=== PATIENT | female | born 1935 | race Caucasian/White ===

== ENCOUNTER → 2016-06-26 | Outpatient (CLI) | payer OTHER | LOC: BHFA 14:45 | PROVIDERS: ATTEND Internal Medicine Cardiovascular Disease | DX: I48.91 Unspecified atrial fibrillation (principal); R06.02 Shortness of breath; Z95.0 Presence of cardiac pacemaker ==

== ENCOUNTER → 2016-06-27 | Outpatient (CLI) | payer OTHER | LOC: BHFA 10:45 | PROVIDERS: ATTEND Internal Medicine Cardiovascular Disease | DX: I48.91 Unspecified atrial fibrillation (principal) ==

== ENCOUNTER 2016-07-02 10:50 | Day surgery (SDC) | payer OTHER ==
[2016-07-02] MEDS ORDERED: MIDAZOLAM 2 MG/2 ML VIAL IVP ONE (11:04)
[2016-07-02] MEDS ORDERED: NS 1,000 ML IV ONE (11:04)
--- NOTE | 2016-07-02 11:21 | CPEKG ---
Heart Rate: 122 RR Interval: 492 QRSD Interval: 100 QT Interval: 324 QTC Interval: 462 QRS [place]: -64 T Wave [place]: 139 EKG Severity - ABNORMAL ECG - EKG Impression: ATRIAL FIBRILLATION, V-RATE 86-200 EKG Impression: LEFT ANTERIOR FASCICULAR BLOCK EKG Impression: ANTERIOR Q WAVES, POSSIBLY DUE TO LVH Electronically Signed By: Robinson Verduzco 02-Jul-2016 13:15:49
[2016-07-02 11:55] LABS: INR 1.06 (0.83-1.16); PROTIME(PATIENT) 13.7 SEC (12.0-15.0)
[2016-07-02 11:59] LABS: ANION GAP 10 mEq/L (8-16); CALCIUM 9.7 mg/dL (8.5-10.4); CARBON DIOXIDE 22 mEq/l (22-31); CHLORIDE 109 mEq/L (97-110); CREATININE 0.7 mg/dL (0.6-1.0); GLOMERULAR FILTRATION RATE > 60; GLUCOSE 107 mg/dL (70-100); MAGNESIUM 2.2 mg/dL (1.6-2.3); SODIUM 141 mEq/L (134-144)
[2016-07-02 12:05] LABS: % IMMATURE GRANULYOCYTES 0.2 % (0.0-1.1); ABSOLUTE IMMATURE GRANULOCYTES 0.01 10^3/uL (0.00-0.10); ADD DIFF? NO; ADD MORPH? NO; ADD SCAN? NO; ATYPICAL LYMPHOCYTE FLAG 0 (0-99); FRAGMENT RBC FLAG 0 (0-99); HEMATOCRIT 38.8 % (38.0-47.0); LEFT SHIFT FLG 20 (0-99); LIPEMIA HEMOLYSIS FLAG 80 (0-99); MEAN CELL HEMOGLOBIN 31.9 pg (27.9-34.1); MEAN CELL HEMOGLOBIN CONCENTR. 33.5 g/dL (32.4-36.7); MEAN CELL VOLUME 95.1 fL (81.5-99.8); MEAN PLATELET VOLUME 9.2 fL (8.7-11.7); PLATELET CLUMPS FLAG 0 (0-99); PLATELET COUNT 230 10^3/uL (150-400); RED BLOOD CELL COUNT 4.08 10^6/uL (4.18-5.33); RED CELL DISTRIBUTION WIDTH 13.4 % (11.5-15.2)
== END 2016-07-02 13:15 | disposition home or self-care (01) ==
LOC: FCATH 10:50
PROVIDERS: ATTEND Internal Medicine Cardiovascular Disease
DX: I48.91 Unspecified atrial fibrillation (principal); I50.30 Unspecified diastolic (congestive) heart failure; M81.0 Age-related osteoporosis without current pathological fracture; Z53.8 Procedure and treatment not carried out for other reasons

== ENCOUNTER 2016-07-09 11:46 | Observation (INO) | payer OTHER ==
[2016-07-09] MEDS ORDERED: NS 1,000 ML IV ONE (12:04)
[2016-07-09] MEDS ORDERED: MIDAZOLAM 2 MG/2 ML VIAL IVP ONE (12:04)
--- NOTE | 2016-07-09 13:03 | CPEKG ---
Heart Rate: 60 RR Interval: 1000 P-R Interval: 228 QRSD Interval: 110 QT Interval: 460 QTC Interval: 460 QRS [place]: -54 T Wave [place]: -56 EKG Severity - ABNORMAL ECG - EKG Impression: ATRIAL-PACED RHYTHM EKG Impression: LEFT ANTERIOR FASCICULAR BLOCK EKG Impression: LATERAL INFARCT CANNOT BE RULED OUT EKG Impression: ABNRM R PROG, CONSIDER ASMI OR LEAD PLACEMENT Electronically Signed By: Maikel Fleming 09-Jul-2016 14:21:08
[2016-07-09 13:06] LABS: % IMMATURE GRANULYOCYTES 0.2 % (0.0-1.1); ABSOLUTE IMMATURE GRANULOCYTES 0.01 10^3/uL (0.00-0.10); ADD DIFF? NO; ADD MORPH? NO; ADD SCAN? NO; ATYPICAL LYMPHOCYTE FLAG 10 (0-99); FRAGMENT RBC FLAG 0 (0-99); HEMATOCRIT 40.8 % (38.0-47.0); HEMOGLOBIN 13.4 g/dL (12.6-16.3); LEFT SHIFT FLG 0 (0-99); LIPEMIA HEMOLYSIS FLAG 80 (0-99); MEAN CELL HEMOGLOBIN 32.6 pg (27.9-34.1); MEAN CELL HEMOGLOBIN CONCENTR. 32.8 g/dL (32.4-36.7); MEAN CELL VOLUME 99.3 fL (81.5-99.8); MEAN PLATELET VOLUME 9.2 fL (8.7-11.7); PLATELET CLUMPS FLAG 30 (0-99); PLATELET COUNT 240 10^3/uL (150-400); RED BLOOD CELL COUNT 4.11 10^6/uL (4.18-5.33); RED CELL DISTRIBUTION WIDTH 13.3 % (11.5-15.2)
[2016-07-09] MEDS ORDERED: HEPARIN 10,000 UNIT/10 ML MDV ONE (13:14)
[2016-07-09] MEDS ORDERED: BUPIVACAINE 0.5% 30 ML SDV ONE (13:14)
[2016-07-09] MEDS ORDERED: LIDOCAINE 1% 30 ML SDV ONE (13:14)
[2016-07-09] MEDS ORDERED: ISOPROTERENOL HCL 0.2 MG/ML 5ML AMP ONE (13:14)
[2016-07-09 13:16] LABS: ANION GAP 11 mEq/L (8-16); CALCIUM 9.5 mg/dL (8.5-10.4); CARBON DIOXIDE 20 mEq/l (22-31); CHLORIDE 111 mEq/L (97-110); CREATININE 0.6 mg/dL (0.6-1.0); GLOMERULAR FILTRATION RATE > 60; GLUCOSE 84 mg/dL (70-100); MAGNESIUM 2.1 mg/dL (1.6-2.3); POTASSIUM 5.5 mEq/L (3.5-5.2); SODIUM 142 mEq/L (134-144)
[2016-07-09 13:21] LABS: SPECIMEN HEMOLYSIS 220
[2016-07-09 13:33] LABS: INR 1.07 (0.83-1.16); PROTIME(PATIENT) 13.8 SEC (12.0-15.0)
[2016-07-09 13:34] LABS: APTT 25.5 SEC (23.0-38.0)
[2016-07-09] MEDS ORDERED: PROPOFOL 200 MG/20 ML VIAL ONE ×2 (13:47)
[2016-07-09] MEDS ORDERED: GLYCOPYRROLATE 0.2 MG/1 ML VIAL ONE (14:45)
--- NOTE | 2016-07-09 15:23 | CPEKG ---
Heart Rate: 30 RR Interval: 2000 QRSD Interval: 136 QT Interval: 528 QTC Interval: 373 QRS [place]: -78 T Wave [place]: 77 EKG Severity - ABNORMAL ECG - EKG Impression: VENTRICULAR PACED RHYTHM AT A VERY SLOW RATE 30 BPM EKG Impression: NORMAL SINUS RHYTHM WITH RATE OF 80 AND COMPLETE HEART BLOCK WITH OBVIOUS AV EKG Impression: DISSOCIATION Electronically Signed By: Maikel Fleming 10-Jul-2016 11:31:09
[2016-07-09] MEDS ORDERED: ATROPINE SULFATE 1 MG/10 ML SYR ONE (15:32)
[2016-07-09] MEDS ORDERED: ACETAMINOPHEN 325 MG TAB PO PRN (15:58)
[2016-07-09] MEDS ORDERED: OXYCODONE/APAP 5/325 TAB PO PRN (15:58)
[2016-07-09] MEDS ORDERED: ONDANSETRON 4 MG/2 ML VIAL IVP PRN (15:58)
[2016-07-09] MEDS ORDERED: PROMETHAZINE HCL 12.5 MG SUPPR PR PRN (16:00)
[2016-07-09] MEDS ORDERED: LORazepam 0.5 MG TAB PO PRN (16:00)
[2016-07-09] MEDS ORDERED: TEARS/DEXTRAN 70/HYPROMELLOSE 15 ML OPHT.BTL EACHEYE PRN (16:39)
[2016-07-09 18:47] LABS: ANION GAP 13 mEq/L (8-16); CALCIUM 9.3 mg/dL (8.5-10.4); CARBON DIOXIDE 21 mEq/l (22-31); CHLORIDE 109 mEq/L (97-110); CREATININE 0.6 mg/dL (0.6-1.0); GLOMERULAR FILTRATION RATE > 60; GLUCOSE 86 mg/dL (70-100); POTASSIUM 3.8 mEq/L (3.5-5.2); SODIUM 143 mEq/L (134-144)
[2016-07-09] MEDS: APIXABAN 2.5 MG TAB PO SCH (20:55)
[2016-07-09 21:37] VITALS: O2SAT 94
[2016-07-10] MEDS ORDERED: LEVOTHYROXINE 25 MCG TAB PO SCH (06:00)
[2016-07-10 06:20] LABS: % IMMATURE GRANULYOCYTES 0.3 % (0.0-1.1); ABSOLUTE IMMATURE GRANULOCYTES 0.01 10^3/uL (0.00-0.10); ADD DIFF? NO; ADD MORPH? NO; ADD SCAN? NO; ATYPICAL LYMPHOCYTE FLAG 10 (0-99); FRAGMENT RBC FLAG 0 (0-99); HEMATOCRIT 36.6 % (38.0-47.0); HEMOGLOBIN 12.4 g/dL (12.6-16.3); LEFT SHIFT FLG 10 (0-99); LIPEMIA HEMOLYSIS FLAG 90 (0-99); MEAN CELL HEMOGLOBIN 32.5 pg (27.9-34.1); MEAN CELL HEMOGLOBIN CONCENTR. 33.9 g/dL (32.4-36.7); MEAN CELL VOLUME 96.1 fL (81.5-99.8); MEAN PLATELET VOLUME 8.6 fL (8.7-11.7); PLATELET CLUMPS FLAG 0 (0-99); PLATELET COUNT 213 10^3/uL (150-400); RED BLOOD CELL COUNT 3.81 10^6/uL (4.18-5.33); RED CELL DISTRIBUTION WIDTH 13.1 % (11.5-15.2)
[2016-07-10 06:28] LABS: INR 1.24 (0.83-1.16); PROTIME(PATIENT) 15.6 SEC (12.0-15.0)
[2016-07-10 06:41] LABS: ANION GAP 8 mEq/L (8-16); CALCIUM 8.9 mg/dL (8.5-10.4); CARBON DIOXIDE 22 mEq/l (22-31); CHLORIDE 111 mEq/L (97-110); CREATININE 0.7 mg/dL (0.6-1.0); GLOMERULAR FILTRATION RATE > 60; GLUCOSE 87 mg/dL (70-100); POTASSIUM 4.1 mEq/L (3.5-5.2); SODIUM 141 mEq/L (134-144)
[2016-07-10 06:53] LABS: TROPONIN I 0.103 ng/mL (0-0.034)
[2016-07-10 08:20] VITALS: BP 130/76; PULSE 90; RESP 16; TEMP 98.3
--- NOTE | 2016-07-10 08:51 | CPEKG ---
Heart Rate: 106 RR Interval: 566 P-R Interval: 126 QRSD Interval: 126 QT Interval: 400 QTC Interval: 532 P [place]: 0 QRS [place]: -76 T Wave [place]: 95 EKG Severity - ABNORMAL ECG - EKG Impression: A-V DUAL-PACED RHYTHM WITH SOME INHIBITION Electronically Signed By: Maikel Fleming 10-Jul-2016 11:26:04
[2016-07-10] MEDS ORDERED: CYANO/VITAMIN B12 1000 MCG TAB PO SCH (09:00)
--- NOTE | 2016-07-10 10:53 | ECHO ---
[id number] + + [id number] : : [place] [address] : : [phone] + + Adult Echocardiographic Report + ------+ :Name: LEXA TRUONGsteph Date: 07/10/2016 08:27 AM BP: 130/78 mmHg : : Hospital Admission Number: [id number] Brandee n: 222: :: 1935 Gender: Female Height: 64 in : :Age: 81 yrs Race: WH Weight: 125 lb : :Reason For Study: post EP study : : BSA: 1.6 meters 2 : :History: arrhythmia : + ------+ MMode/2D Measurements \T\ Calculations IVSd: 0.88 cm RVDd: 3.1 cm FS: 28.2 % Ao root diam: LVPWd: 0.88 cm LVIDd: 4.1 cm EDV(Teich): 72.2 ml 3.5 cm LVIDs: 2.9 cm ESV(Teich): 32.5 ml LA dimension: EF(Teich): 55.0 % 3.3 cm LVOT diam: 2.0 cmLVLd ap4: 6.4 cm SV(MOD-sp4): LVOT area: EDV(MOD-sp4): 36.0 ml 3.2 cm2 68.0 ml LVLs ap4: 5.6 cm ESV(MOD-sp4): 32.0 ml EF(MOD-sp4): 52.9 % Normal Measurement Values: + + :LVIDd (3.5-5.7cm) IVSd (0.6-1.1cm) LVPWd (0.6-1.1cm) Aortic Root (2.0-3.7cm)Left Atrium (1.5-4.0cm): :LV Vol(d) (76-115ml) LV Vol(s) (29-48ml) Ejec Fraction (50-65%)PV Julio (0.6- 1.2m/s) TV Julio (0.4-1.0m/s) : :MV E Julio (0.8-1.0m/s)MV A Julio (0.3-1.0m/s)LVOT Julio (0.7-1.2m/s) Asc Ao Julio ( 0.9-1.8m/s) : + + Doppler Measurements \T\ Calculations MV E max julio: Ao V2 max: LV V1 max: PA V2 max: 20.7 cm/sec 94.1 cm/sec 62.4 cm/sec 67.3 cm/sec Ao max P.5 mmHgLV V1 max PG: PA max PG: LUDWIN(V,D): 2.1 cm2 1.6 mmHg 1.8 mmHg PI end-d julio: TR max julio: 178.1 cm/sec 297.5 cm/sec TR max P.4 mmHg RAP systole: 10.0 mmHg RVSP(TR): 45.4 mmHg Left Ventricle The left ventricle is normal in size. There is normal left ventricular wall thickness. Left ventricular systolic function is low normal. Ejection Fraction = 50-55%. No regional wall motion abnormalities noted. Right Ventricle The right ventricle is normal in size and function. There is a pacemaker lead in the right ventricle. Atria The left atrium is mildly dilated. The Left Atrial Volume is 40 ml/m2. The right atrium is mildly dilated. There was no clot seen in the IVC. A dilated inferior vena cava suggests increased right atrial pressure. Mitral Valve The mitral valve leaflets appear thickened, but open well. There is no mitral valve stenosis. There is moderate mitral regurgitation. Tricuspid Valve The tricuspid valve is normal in structure and function. There is no tricuspid stenosis. There is moderate tricuspid regurgitation. Right ventricular systolic pressure is 45mmHg. There is Doppler evidence for moderate pulmonary hypertension. Aortic Valve The aortic valve is trileaflet. There is no aortic stenosis. There is no aortic insufficiency. Pulmonic Valve The pulmonic valve is normal in structure and function. Mild to moderate pulmonic valvular regurgitation. Great Vessels The aortic root is normal size. Pericardium/Pleural Trivial pericardial effusion versus fat pad. Conclusion A two-dimensional transthoracic echocardiogram with M-mode and Doppler was performed. Left ventricular systolic function is low normal. Ejection Fraction = 50-55%. The left atrium is mildly dilated. The Left Atrial Volume is 40 ml/m2. The right atrium is mildly dilated. There was no clot seen in the IVC. There is moderate mitral regurgitation. There is moderate tricuspid regurgitation. Right ventricular systolic pressure is 45mmHg. There is Doppler evidence for moderate pulmonary hypertension. Mild to moderate pulmonic valvular regurgitation. Trivial pericardial effusion versus fat pad. Final Reading Physician: Robinson Verduzco MD electronically signed on 07/10/2016 10:51 AM Ordering Physician: Robinson Verduzco Performed By: Amarilys Roper
[2016-07-10] MEDS: APIXABAN 2.5 MG TAB PO SCH (11:00)
--- NOTE | 2016-07-10 12:05 | EPPROC ---
Electrophysiology Procedure Note: Procedure performed on 07/09/2016 CATHETER MEDIATED ABLATION OF THE AV JUNCTION Procedures performed: [id number] AV node ablation Fluoroscopy INDICATION: Atrial fibrillation, unable to rate control despite maximally tolerated medical therapy Catheters & Anesthesia: The patient arrived in the Electrophysiology Laboratory in the fasting state. Moderate sedation was administered by anesthesiologist. The right groin and left groin area were prepped and draped in the usual sterile manner. Appropriate non-invasive blood pressure, pulse oximetry and end-tidal CO2 monitoring was established. All catheters were placed percutaneously using the modified Seldinger technique and advanced into position under fluoroscopic guidance). At baseline the patient was noted to be in atrial paced rhythm . She is known to have ventricular rates in excess of 150 beats per minute during atrial fibrillation. This is despite maximally tolerated medical therapy A #7 Cam[place]onian deflectable quadrapolar electrode catheter (2mm-5mm-2mm spacing) with 8 mm tip electrode was advanced to the right atrium. A total of 4 RF applications were delivered. RF#1 was applied in the area of the compact AV node. RF#2 was applied to the same area as RF#1. RF#3 was applied to the area of the fast AV sima pathway. RF#4 was applied to the right midseptal tricuspid annulus. There was complete AV block after RF 1. Cessation of pacing revealed that there was junctional escape rhythm at a rate of 32 bpm in the recovery area. In the EP lab, there was no escape rhythm. Pacemaker implantation was done previously. The pacemaker was programmed to a lower rate of 80 ppm to reduce the risk of sudden associated with torsades de pointes. The lower rate will gradually be reduced to 60 ppm after 1 month . Fluoroscopically pacemaker lead positions were unchanged after procedure Pacemaker thresholds and impedances were unchanged after the procedure The catheters were removed. The patient was transferred to the cardiovascular holding area in stable condition. Vascular access sheaths were removed in the holding area. There were no apparent complications. CONCLUSIONS: 1. Atrial fibrillation with rapid ventricular response. 2. Successful ablation of the AV junction producing complete AV block. 3. Junctional escape rhythm at a rate of 32 all bpm. 4. No complications. Patient Problems: Problems Problem Status Onset Atrial fibrillation with rapid ventricular response Acute Bradycardia Acute Sinus arrest Acute Pleural effusion, left Acute Pericardial effusion Acute Chest pain Acute
--- NOTE | 2016-07-10 17:38 | GDS ---
[f rep st] DISCHARGE SUMMARY ADMITTING DIAGNOSES: 1. Atrial fibrillation with rapid ventricular response. 2. Status post pacemaker for sinus arrest 01/15. 3. Valvular disease with moderate mitral regurgitation and tricuspid regurgitation. DISCHARGE DIAGNOSES: 1. Atrial fibrillation with rapid ventricular response, status post atrioventricular node ablation. 2. Dual-chamber pacemaker for sinus arrest 01/15. 3. Valvular disease with moderate mitral regurgitation and tricuspid regurgitation. BRIEF HISTORY: This is an 81-year-old woman with a history of PAF with symptomatic RVR for over 1 year. Her rates have been unable to be controlled with medications. AV node ablation has been discussed and offered for over a year, however, she was hesitant to have this done. Recently, her symptoms became extremely symptomatic, and she was miserable, and she decided to proceed with AV node ablation. Recent echocardiogram demonstrated EF of 50% to 55%, and a severely dilated LA. She had a prior dual-chamber pacemaker implanted in January 2015. HOSPITAL COURSE: The patient underwent a successful AV node ablation by Dr. Verduzco without complications. Her pacemaker rate is set at 80 beats per minute. She has not had any atrial fibrillation overnight. This morning, she was initially feeling well. She denied any pain in her groin or her leg. Later, she did develop some nausea, which did improve after she received some Zofran. She was able to keep her medications down, and she felt better, and was able to go home with her son. PHYSICAL EXAMINATION: VITAL SIGNS: Blood pressure is 118/76, pulse is 88, respirations 18, temperature 36.6. O2 saturation on room air is 94%. GENERAL: She is alert and oriented, in no acute distress, sitting up in her chair and walking in her room. SKIN: Warm and dry. No discoloration. CARDIAC: Regular rate and rhythm with a 2/3 systolic murmur. No JVD. LUNGS: Clear to auscultation. ABDOMEN: Soft and nontender. EXTREMITIES: Warm, dry. No discoloration. No lower extremity edema. Right groin site is without swelling , bleeding, or drainage. No tenderness. LAB WORK: WBC is 3.97, hemoglobin 12.4, hematocrit 36.6, platelets 213. PT 15.6. INR is 1.24. Sodium 141, potassium 4.1, chloride 111, bicarbonate 22, BUN 15, creatinine is 0.7, glucose 87, CK 32, MB 0.5, troponin is 0.103. These cardiac enzymes are elevated, which is to be expected after ablation. Testing done in the hospital: Echocardiogram on the day of discharge demonstrated ejection fraction of 50% to 55% with moderate MR and TR, and a trivial effusion versus fat pad. DISCHARGE MEDICATIONS: Please see discharge medication reconciliation. FOLLOWUP: She has a followup scheduled on August 08, 2016, with Dr. Verduzco at 10:45. DISCHARGE INSTRUCTIONS: Reviewed with her. As far as activity restrictions, no lifting over 10 pounds, and these were written down on her discharge. /[id number]/MODL MTDD
== END 2016-07-10 16:22 | disposition home or self-care (01) ==
LOC: FCATH 11:46 → F2W 14:50
PROVIDERS: ADMIT Internal Medicine Cardiovascular Disease; ATTEND Internal Medicine Cardiovascular Disease
PROC: 02563ZZ Destruction of Right Atrium, Percutaneous Approach (ICD-10-PCS; principal; 2016-07-09)
DX: I48.1 Persistent atrial fibrillation (principal); I08.1 Rheumatic disorders of both mitral and tricuspid valves; M81.0 Age-related osteoporosis without current pathological fracture; E03.9 Hypothyroidism, unspecified; Z95.0 Presence of cardiac pacemaker
CPT/HCPCS: 93005; 93306; 93650; C1732; J1644; J2405; J2704; J0461

== ENCOUNTER → 2016-08-08 | Outpatient (CLI) | payer OTHER | LOC: BHFA 10:45 | PROVIDERS: ATTEND Internal Medicine Cardiovascular Disease | DX: I48.91 Unspecified atrial fibrillation (principal); R06.02 Shortness of breath; I50.30 Unspecified diastolic (congestive) heart failure; Z95.0 Presence of cardiac pacemaker ==

== ENCOUNTER → 2016-12-24 | Outpatient (CLI) | payer OTHER | LOC: FIMAGING 10:10 | PROVIDERS: ATTEND Internal Medicine | DX: J34.89 Other specified disorders of nose and nasal sinuses (principal) ==

== ENCOUNTER 2017-09-22 09:00 | Inpatient (IN) | payer OTHER ==
--- NOTE | 2017-09-22 09:19 | EDPHY ---
H & P Stated Complaint: R KNEE PAIN, FALL Time Seen by Provider: 09/22/17 09:16 HPI/ROS: HPI: This is an 82-year-old female who presents with Chief Complaint: Fall and left knee pain Location:left knee Quality: injury Duration: Yesterday evening around 8:00 p.m. Signs and Symptoms: No bleeding, no radiation, no numbness, no weakness, no tingling, no incontinence, + decreased range of motion, + swelling, + pain, no fever Timing: acute Severity: moderate Context: Patient reports that she has a history atrial fibrillation on Eliquis , status post pacemaker placement and this hospital 2 years ago presents via EMS after she had her daughter called them this morning. She reports that yesterday evening around 8:00 p.m. She was moving in between the bed and the wall in her foot got stuck causing her to fall forward and landed on her left knee she reports that she hit her head in the process but is unsure of the exact mechanism of how she fell. She reports that she has trouble getting up from sitting to standing positions due to arthritic knees. She reports that her left knee had moderate, constant pain with accompanied swelling and she was unable to get off of the floor so she just laid there all night. She reports that she tried calling her daughter to times but she was out on the patio and did not hear the phone ringing. She has not ate or drank anything since yesterday evening. Denies LOC/neck pain/dizziness/nausea/vomiting/amnesia/fever /urinary symptoms. Modifying Factors: None Comment: ROS: see HPI Constitutional: No fever, no chills, no weight loss Eyes: No blurred vision Respiratory: No shortness of breath, no cough Cardiovascular: No chest pain Gastrointestinal: No nausea, no vomiting no diarrhea Genitourinary: No dysuria Extremities: No myalgias Neurologic: No weakness, no numbness Skin: No rashes Hematologic: No bruising, no bleeding MEDICAL/SURGICAL/SOCIAL HISTORY: Medical history: hypothyroid, a fib with 8 sec pause, ppm, a-v node ablation Surgical history: Denies Social history: Retired, lives alone CONSTITUTIONAL: Extremely talkative well-appearing elderly white female wearing a straw hat, awake and alert, no obvious distress HEENT: Atraumatic and normocephalic, PERRL, EOMI. no globe entrapment, no raccoon eyes. no Irvin signs.Tympanic membranes clear. No tympanic membrane rupture. Nares patent; no septal hematoma. Oropharynx clear, no exudate and moist pink mucosa. No malocclusion. no dental trauma. Airway patent. No lymphadenopathy. NECK: supple, no midline tenderness, flexion 45 degrees, extension 45 degrees, right and left lateral flexion 45 degrees. No meningismus. Cardiovascular: Normal S1/S2, regular rate, regular rhythm, without murmur rub or gallop. PULMONARY/CHEST: Symmetrical and nontender. no crepitus. Clear to auscultation bilaterally. Good air movement. No accessory muscle usage. ABDOMEN: Soft, nondistended, nontender, no ecchymosis, no rebound, no guarding , no peritoneal signs, no masses or organomegaly. No CVAT. PELVIC: no pain with rocking; bilateral hips flexion 125 degrees, extension 30 degrees, with no pain internal rotation and no pain external rotation. BACK: No midline tenderness, no paraspinous spasm, deep tendon reflexes 2/2, no pain with straight leg raise EXTREMITIES: 2/2 pulses, left HIP: Flexion to 125, extension to 115, hyper extension to 15, abduction to 45. No Pain with internal rotation and external rotation. No tenderness over greater trochanter. left KNEE: Moderate effusion, mild medial and lateral joint line tenderness, full extension to 180 , flexion to 120. No pain with varus and valgus exam. No pain with anterior drawer or posterior drawer test. no deformities, no clubbing, no cyanosis or edema. NEUROLOGICAL: no focal neuro deficits. GCS 15. SKIN: Warm and dry, no erythema. no rash. Good capillary refill. Source: Patient Exam Limitations: No limitations - Personal History Current Tetanus/Diphtheria Vaccine: Unsure - Medical/Surgical History Hx Asthma: No Hx Chronic Respiratory Disease: No Hx Diabetes: No Hx Cardiac Disease: Yes Hx Renal Disease: No Hx Cirrhosis: No Hx Alcoholism: No Hx HIV/AIDS: No Hx Splenectomy or Spleen Trauma: No Other PMH: hypothyroid, a fib with 8 sec pause, ppm, a-v node ablation, - Social History Smoking Status: Never smoked Constitutional: Initial Vital Signs Temperature (C) 36.8 C 09/22/17 09:06 Heart Rate 77 09/22/17 09:06 Respiratory Rate 16 07/23/18 09:06 Blood Pressure 164/93 H 09/22/17 09:06 O2 Sat (%) 97 09/22/17 09:06 O2 Delivery Mode Room Air Allergies/Adverse Reactions: No Known Allergies Allergy (Unverified 01/07/15 15:50) Home Medications: Medication Instructions Recorded Herbals/Supplements -Info Only 1 ea PO DAILY 01/07/15 Levothyroxine [Synthroid 25 mcg 25 mcg PO DAILY06 01/07/15 (*)] Apixaban [Eliquis] 2.5 mg PO BID #60 tab 01/11/15 Cholecalciferol Vit D3 [Vitamin D3 1,000 units PO DAILY 07/09/16 (*)] Ascorbic Acid [Vitamin C 500 mg 500 mg PO DAILY 09/22/17 (*)] Multivitamins [Multivitamin (*)] 1 each PO DAILY 09/22/17 Propylene Glycol/Peg 400 [Systane 1 - 2 drops OP DAILY PRN 09/22/17 0.3-0.4% Eye Drops] Medical Decision Making - Diagnostics Imaging Results: Imaging Impressions Head CT 09/22/17 09:07 Impression: 1. Mild to moderate age-related atrophy. 2. No hemorrhage, mass effect, or definite acute peripheral infarct. 3. Moderate nonspecific hypodensities in the white matter of bilateral cerebral hemispheres. Differential diagnosis includes microvascular ischemic disease, post-infectious/post-inflammatory sequela, atypical demyelinating disease, or migraine-related sequela. Small white matter lacunar infarcts may also have this appearance. If symptoms worsen, additional imaging may be necessary. Findings discussed with Meme Springer PAC at 10:03 hour, 09/22/2017. Knee X-Ray 09/22/17 09:07 Impression: Acute minimally distracted transverse patellar fracture with knee effusion. Hip X-Ray 09/22/17 09:15 Impression: Negative. No acute fracture. Procedures: Procedure: Splint placement. A left knee immobilizer was applied by the Emergency Room cell phone repair technician. After application of the splint I returned and re-examined the patient. The splint was adequately immobilizing the joint and distal to the splint the patient's circulation and sensation was intact. ED Course/Re-evaluation: Based on [place] CT head protocol of age greater than 65 years old, head CT imaging ordered along with left knee x-ray and left hip x-ray. Laboratory studies drawn including CPK due to length of time on the floor. Fall was accidental and mechanical in nature. No concern for syncope, ACS, CVA , sepsis. Vital signs reviewed and stable upon arrival. 0935: Labs reviewed. No signs of leukocytosis/anemia/platelet dysfunction/LICO/ rhabdomyolysis/electrolyte imbalance/coagulopathy. Hip x-ray my read via PAC shows no fracture, dislocation. The x-ray my read shows suprapatellar effusion, + transverse nondisplaced patella fracture. Placed in knee immobilizer. Called by radiologist Dr. Tristan Mistry who reports that head CT scan shows chronic changes but no acute intracranial process including no hemorrhage, no fracture. 1025: Due to patient's inability to ambulate question fall risk and chronic anticoagulation decision to admit to the hospitalist with Ortho consult made. Spoke with Deisy who kindly agrees to admit patient to [facility] to Dr. Easton. Still waiting on orthopedic consult at time of consult to the hospitalist and bed request. 1130: Spoke with Dr. Price who kindly agrees to consult on patient. No signs of neurovascular compromise/tenting of skin/compartment syndrome/ extremities and joints examined above and below area of concern and are neurovascularly intact. This patient was seen under the supervision of my secondary supervising physician. I evaluated care for this patient independently. Discussed this patient with Dr. Glasgow. Differential Diagnosis: Head injury including but not limited to concussion, skull fracture, intraparenchymal contusion, subarachnoid, subdural and epidural hematoma. - Data Points Laboratory Results: Laboratory Results 09/22/17 09:15 09/22/17 09:15 09/22/17 09/22/17 09/22/17 09:15 09:15 09:15 WBC 6.86 10^3/uL 10^3/uL (3.80-9.50) RBC 4.07 10^6/uL L 10^6/uL (4.18-5.33) Hgb 13.3 g/dL g/dL (12.6-16.3) Hct 39.3 % % (38.0-47.0) MCV 96.6 fL fL (81.5-99.8) MCH 32.7 pg pg (27.9-34.1) MCHC 33.8 g/dL g/dL (32.4-36.7) RDW 12.6 % % (11.5-15.2) Plt Count 239 10^3/uL 10^3/uL (150-400) MPV 9.2 fL fL (8.7-11.7) Neut % (Auto) 83.8 % H % (39.3-74.2) Lymph % (Auto) 12.7 % L % (15.0-45.0) [place] % (Auto) 3.1 % L % (4.5-13.0) Eos % (Auto) 0.0 % L % (0.6-7.6) Baso % (Auto) 0.1 % L % (0.3-1.7) Nucleat RBC Rel Count 0.0 % % (0.0-0.2) Absolute Neuts (auto) 5.75 10^3/uL 10^3/uL (1.70-6.50) Absolute Lymphs (auto) 0.87 10^3/uL L 10^3/uL (1.00-3.00) Absolute Monos (auto) 0.21 10^3/uL L 10^3/uL (0.30-0.80) Absolute Eos (auto) 0.00 10^3/uL L 10^3/uL (0.03-0.40) Absolute Basos (auto) 0.01 10^3/uL L 10^3/uL (0.02-0.10) Absolute Nucleated RBC 0.00 10^3/uL 10^3/uL (0-0.01) Immature Gran % 0.3 % % (0.0-1.1) Immature Gran # 0.02 10^3/uL 10^3/uL (0.00-0.10) PT 14.5 SEC SEC (12.0-15.0) INR 1.11 (0.83-1.16) APTT 29.1 SEC SEC (23.0-38.0) Sodium 138 mEq/L mEq/L (135-145) Potassium 4.7 mEq/L mEq/L (3.3-5.0) Chloride 105 mEq/L mEq/L (97-110) Carbon Dioxide 23 mEq/l mEq/l (22-31) Anion Gap 10 mEq/L mEq/L (8-16) BUN 22 mg/dL mg/dL (7-23) Creatinine 0.7 mg/dL mg/dL (0.6-1.0) Estimated GFR > 60 Glucose 126 mg/dL H mg/dL (70-100) Calcium 9.8 mg/dL mg/dL (8.5-10.4) Creatine Kinase 53 IU/L IU/L (0-156) Departure - Departure Disposition: [facility] Inpatient Acute Clinical Impression: Inability to ambulate due to knee, Chronic anticoagulation, Effusion of left knee Left patella fracture Qualifiers: Encounter type: initial encounter Fracture type: closed Fracture morphology: transverse Fracture alignment: nondisplaced Qualified Code(s): S82.035A - Nondisplaced transverse fracture of left patella, initial encounter for closed fracture Fall Qualifiers: Encounter type: initial encounter Qualified Code(s): W19.XXXA - Unspecified fall, initial encounter Condition: Fair
[2017-09-22 09:27] LABS: PLATELET COUNT 239 10^3/uL (150-400)
[2017-09-22 09:36] LABS: INR 1.11 (0.83-1.16); PROTIME(PATIENT) 14.5 SEC (12.0-15.0)
[2017-09-22 10:02] LABS: CREATINE KINASE 53 IU/L (0-156)
[2017-09-22] MEDS ORDERED: Propylene Glycol/Peg 400 [Systane 0.3-0.4% Eye Drops] OP PRN (11:04)
[2017-09-22] MEDS ORDERED: ACETAMINOPHEN 325 MG TAB PO PRN (12:29)
[2017-09-22] MEDS ORDERED: ONDANSETRON DISINTEGRATING 4 MG TAB PO PRN (12:29)
[2017-09-22] MEDS ORDERED: ONDANSETRON 4 MG/2 ML VIAL IVP PRN (12:29)
--- NOTE | 2017-09-22 13:36 | PDCONSULT ---
[place] Note: full ortho consult note to follow: yobani is a pleasant 82 yo female, reports last night she tripped and fell, hit her head, and also her knee on the way down but not entirely sure how, was taken to the ED, where she had a head CT performed, along with knee x-rays, found to have a left knee patella fracture and was placed in knee immobilizer, admitted due to fall risk. overall, she reports no major issues today, pain is well controlled, she denies any fevers or chills, denies any chest pain, SOB, n/v/d/c Problems Problem Status Onset Chronic anticoagulation Acute Effusion of left knee Acute Fall Acute Inability to ambulate due to knee Acute Left patella fracture Acute Atrial fibrillation with rapid ventricular response Acute Bradycardia Acute Chest pain Acute Pericardial effusion Acute Pleural effusion, left Acute Sinus arrest Acute Generic Name Dose Route Start Last Admin Trade Name Freq PRN Reason Stop Dose Admin Acetaminophen 650 mg 09/22/17 12:29 Tylenol PO 03/21/18 12:28 Q4HRS PRN Pain, Mild/Fever, Can Take PO Apixaban 2.5 mg 09/22/17 21:00 Eliquis PO 03/21/18 20:59 BID STEFFANY Ascorbic Acid 500 mg 09/23/17 09:00 Vitamin C PO 03/22/18 08:59 DAILY STEFFANY Calcium Carbonate 500 mg 09/22/17 18:17 Tums PO 03/21/18 18:16 TID PRN Indigestion Cholecalciferol 1,000 units 09/23/17 09:00 Vitamin D PO 03/22/18 08:59 DAILY STEFFANY Famotidine 20 mg 09/22/17 17:45 09/22/17 17:59 Pepcid PO 03/21/18 17:44 20 mg DAILY STEFFANY Administration Levothyroxine Sodium 25 mcg 09/23/17 06:00 Synthroid PO 03/22/18 05:59 DAILY06 STEFFANY Miscellaneous Medication 1 - 2 drops 09/22/17 11:04 Propylene Glycol/Peg 400 [Systane 0.3-0.4% Eye Drops] OP DAILY PRN Dry Irritated Eyes Ondansetron HCl 4 mg 09/22/17 12:29 Zofran IVP 03/21/18 12:28 Q4HRS PRN Nausea/Vomiting, Can't Take PO Ondansetron HCl 4 mg 09/22/17 12:29 Zofran Odt PO 03/21/18 12:28 Q4HRS PRN Nausea/Vomiting, Use 1st Allergy/AdvReac Type Severity Reaction Status Date / Time No Known Allergies Allergy Unverified 01/07/15 15:50 09/22/17 09:15 09/22/17 09:15 LLE: in straight leg knee immobilizer, no erythema, no ecchymosis, mild edema, ttp patella, nttp med/lat joint line, no knee rom assessed, full ankle/digit rom , grossly nvid with pt/dp 2+ and symmetric, A/P: 82 yo female s/p fall last night w/ trip on rug and subsequent fall and head impact along with left knee trauma resulting in left patella fracture, placed in straight leg knee immobilizer, admitted due to fall risk on hospitalist service. LLE: left knee transverse patella fracture, non operative management recommended , briefly discussed surgical options with son and patient but counseled non- operative and patient/family agreed, continue timekeeping supervisor straight leg knee immobilizer, WBAT LLE pt/ot evaluation pain and proph per primary ortho will follow while in patient -dispo probable snf
--- NOTE | 2017-09-22 13:52 | GHP ---
[f rep st] HISTORY AND PHYSICAL DATE OF ADMISSION: 09/22/2017 CHIEF COMPLAINT: Left knee pain and fall. HISTORY OF PRESENT ILLNESS: The patient is an 82-year-old female who has a past medical history, including atrial fibrillation on chronic anticoagulation, pericarditis, and diastolic heart failure, who presented to the emergency room after sustaining a fall. This occurred last night at approximately 8 p.m. She was moving between the bed and the wall to shut the window when her foot got stuck, causing her to fall forward. She does not remember landing on her knee but remembers hitting her head. She tried to stand up but had significant pain and was unable to walk around. She tried calling her daughter but was unable to reach her. She was on the floor until 7 a.m. this morning. She denies no loss of consciousness, no chest pain. She has shortness of breath all the time secondary to her atrial fibrillation. She has not fallen in approximately 10 years. This was not a presyncopal type fall. It was simply a mechanical fall, and she lost her balance. During my interview, she is overall feeling well and has no significant complaints. PAST MEDICAL HISTORY: 1. Hyperlipidemia. 2. Diastolic heart failure. 3. Atrial fibrillation, on anticoagulation. 4. Anemia of chronic disease. 5. Hypothyroidism. 6. Hypertension. 7. Anxiety. 8. History of pericardial and pleural effusion, status post pacemaker placement. 9. Moderate pulmonary hypertension. 10. Migraines. PAST SURGICAL HISTORY: 1. Pacemaker placement. 2. Hernia repair. 3. Hysterectomy. FAMILY HISTORY: Both parents are . SOCIAL HISTORY: She lives in a 1 bedroom apartment on her own. She has been for 10 years. She has 3 children. She does not smoke and does not drink alcohol. 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 ALLERGIES: No known allergies. HOME MEDICATIONS: Herbal supplements 1 tab daily, vitamin C 500 mg daily, Systane eye drops p.r.n., multivitamin 1 tab daily, Synthroid 25 mcg daily, vitamin D3 1000 units daily, and Eliquis 2.5 mg b.i.d. REVIEW OF SYSTEMS: A 10-point review of systems was performed, was negative other than pertinent positives in the HPI and past medical history. PHYSICAL EXAM: GENERAL: The patient is an 82-year-old female who appears to be in overall fair health. VITAL SIGNS: Blood pressure is 135/85. Heart rate is 78. Respiratory rate is 18. O2 sats on room air 96%. Temperature is 37 degrees Celsius. HEENT: Eyes: Pupils are equal and reactive. EOMs are intact. ENT: She has normal ears, hearing intact, normal lips and teeth. NECK : No pain with extension and flexion. CARDIOVASCULAR: She is in a regular rate and rhythm. No murmurs, rubs, or gallops noted. CHEST/LUNGS: Normal respiratory effort, clear, without wheezing, rales, or rhonchi. ABDOMEN: Soft , nontender. LYMPH: No lymphadenopathy noted. SKIN: She has a small bruise on her right forehead area. Her left knee has some minor swelling, but no bruising noted. MUSCULOSKELETAL: Not evaluated. She has a brace in place on her left lower extremity. PSYCHIATRIC: She is alert and oriented. Normal mood and affect. Normal judgment, insight and normal memory. DATA REVIEWED: CBC shows a white blood cell count 6.87, hemoglobin 13.3, hematocrit 39.3, platelet count of 239, neutrophils of 83.8%. Coags: Pro time is 14.5, INR 1.11, PTT 29.1. Chemistry: Sodium is 138, potassium 4.7, chloride of 105, BUN of 22, creatinine 0.7, glucose of 126, calcium 9.8. CPK 53. IMAGIN. Head CT shows [id number] age-related atrophy. She has no hemorrhage, mass effect, or definite acute peripheral infarct. She has moderate nonspecific hypodensities in the white matter of bilateral cerebral hemispheres. Differential diagnosis includes microvascular ischemic disease, postinfectious/postinflammatory sequela, atypical demyelinating disease or migraine-related sequela. Small white matter lacunar infarcts may also have this appearance. 2. Knee x-ray shows an acute minimally distracted transverse patellar fracture with knee effusion. 3. Hip x-ray is negative for an acute fracture. I reviewed the patient's care with Meme Springer, physician pediatric physical therapy assistant, in the emergency room. ASSESSMENT/PLAN: 1. Acute, minimally transverse patellar fracture with a knee effusion. The emergency room has contacted Orthopedics. They will further evaluate her. For now, will keep her in a brace and ice p.r.n. I suspect this is nonsurgical, will give her supportive care. 2. Gait instability, resulting in a fall. Will have Physical Therapy and Occupational Therapy see her. 3. Diastolic heart failure. She does not appear to be in any type of heart failure and appears to be euvolemic. 4. Atrial fibrillation with pacemaker in place. She is to have the pacemaker evaluated this coming . Will have this interrogated during her hospital stay. CHADS2-VASc score is moderate. Will continue her Eliquis. She is not on any rate controlled medications. 5. Hypothyroidism. Resume Synthroid. 6. Deep vein thrombosis prophylaxis, anticoagulated with Eliquis. Will resume this once she is seen and evaluated by the surgical team. 7. Code status: Do not resuscitate. 8. Length of stay: I suspect she will require greater than a 2-midnight stay because she is unable to ambulate and will likely need a higher level of care, plus she has multiple comorbidities. /[id number]/MODL MTDD
--- NOTE | 2017-09-22 14:25 | ASMTCMCOM ---
CM Note CM Note Notes: Pt presented to the ED via EMS from home for left knee swelling and pain after she had a mechanical fall last night. Pt was able to get back up into her bed but then when she went to the bathroom later in the night she became weak and lowered herself to the floor and then was unable to stand again. Pt had tried to contact her daughter who lives in [place], but pt was unable to reach her so she remained on the floor until 7am today. Pt had also hit her head at the time. Pt has a left patellar fracture and knee effustion; knee immobilizer placed and ortho consulted. Pt accompanied to the ED by her son, Gutierrez ([phone]) who lives in [place]. Pt lives alone in an apartment and is normally independent w/her ADLs. Pt does not receive any home care services. Pt's other son, Jassi, lives close to her but he is out of the country at this time. [facility] to [facility]. Pt may need short term rehab stay at SNF vs. home w/skilled and non-skilled HC. CM discussed this briefly w/pt and Gutierrez while in the ED. CM to follow. Date Signed: 09/22/2017 02:24 PM Electronically Signed By:Darling Otero RN
--- NOTE | 2017-09-22 14:29 | ASMTLACE ---
KELSEA Acuity / Level of Answers: Yes Care: Did the patient have an inpatient admission? Comorbidities - select Answers: Congestive heart failure all that apply History of falls Other Notes: A- fib, pacemaker, anemia, HT N, hyperlipidemia, mode rat e pulmonary hypertension, hypothyro idi sm, migraines, anxiety # of Emergency department Answers: 1-2 visits in the last 6 months Social determinants Answers: Mental health diagnosis (anxiety, depression, pers onality disorders, etc.) Score: 13 Date Signed: 09/22/2017 02:28 PM Electronically Signed By:Darling Otero RN
[2017-09-22] MEDS: FAMOTIDINE 20 MG TAB PO SCH (17:59)
--- NOTE | 2017-09-22 18:20 | PDMN ---
Medical Necessity Medical necessity: Pt meets INPT criteria per MD as of 09/22/17 and [facility] Musculoskeletal Disease GRG (est. LOS >2 MN for eval/mgmt of acute patellar fracture with knee effusion, unable to ambulate, instability resulting in a fall ; comorbid diastolic heart failure, afib with pacemaker in place).
[2017-09-22] MEDS: APIXABAN 2.5 MG TAB PO SCH (20:33)
[2017-09-23] MEDS: LEVOTHYROXINE 25 MCG TAB PO SCH (05:11)
[2017-09-23] MEDS: ASCORBIC ACID 500 MG TAB PO SCH (08:57)
[2017-09-23] MEDS: FAMOTIDINE 20 MG TAB PO SCH (08:57)
[2017-09-23] MEDS: CHOLECALCIFEROL VIT D3 1,000 UNITS TAB PO SCH (08:58)
[2017-09-23] MEDS: APIXABAN 2.5 MG TAB PO SCH ×2 (08:58→21:13)
[2017-09-23] MEDS: CALCIUM CARBONATE 500 MG CHEWABLE TAB PO PRN (08:59)
--- NOTE | 2017-09-23 15:47 | ASMTCMCOM ---
CM Note CM Note Notes: CM met w/ pt and Laine (daughter) for dispo planning. SNF is recommended. CM provided pt and Laine w/ senior blue book. Pt and Laine would like referrals made to [facility], [facility], [facility] and [facility]. Referral sent. CM completed non triggering PASRR. CM to follow. Plan: SNF Date Signed: 09/23/2017 03:46 PM Electronically Signed By:LUCIANA Fabian
--- NOTE | 2017-09-23 18:05 | HOSPPROG ---
Hospitalist Progress Note Assessment/Plan: * Patella fracture -straight leg knee immobilizer -WBAT -poor mobility - will need SNF * Afib/PCM -continue Eliquis * Chronic CHF due to DD Subjective: pain, uncomfortable Objective: Vital Signs Temp Pulse Resp BP Pulse Ox 37.1 C 79 16 123/74 H 97 09/23/17 16:00 09/23/17 16:00 09/23/17 16:00 09/23/17 16:00 09/23/17 16:00 09/22/17 09/23/17 09/24/17 05:59 05:59 05:59 Intake Total 450 Output Total 1100 350 Balance -650 -350 PT 14.5 SEC (12.0-15.0) 09/22/17 09:15 INR 1.11 (0.83-1.16) 09/22/17 09:15 - Physical Exam Constitutional: no apparent distress, appears nourished, not in pain Cardiovascular: regular rate and rhythym, no murmur, rub, or gallop Respiratory: no respiratory distress, no rales or rhonchi, clear to auscultation Gastrointestinal: normoactive bowel sounds, soft, non-tender abdomen, no palpable masses Skin: no rashes or abrasions, no fluctuance, no induration Neurologic: AAOx3, sensation intact bilaterally Psychiatric: interacting appropriately, not anxious, not encephalopathic, thought process linear ICD10 Worksheet Patient Problems: Problems Problem Status Onset Chronic anticoagulation Acute Effusion of left knee Acute Fall Acute Inability to ambulate due to knee Acute Left patella fracture Acute Atrial fibrillation with rapid ventricular response Acute Bradycardia Acute Chest pain Acute Pericardial effusion Acute Pleural effusion, left Acute Sinus arrest Acute
[2017-09-24] MEDS: LEVOTHYROXINE 25 MCG TAB PO SCH (05:12)
[2017-09-24] MEDS: ASCORBIC ACID 500 MG TAB PO SCH (09:56)
[2017-09-24] MEDS: APIXABAN 2.5 MG TAB PO SCH ×2 (09:56→20:04)
[2017-09-24] MEDS: CHOLECALCIFEROL VIT D3 1,000 UNITS TAB PO SCH (09:56)
[2017-09-24] MEDS: CALCIUM CARBONATE 500 MG CHEWABLE TAB PO PRN (13:42)
--- NOTE | 2017-09-24 14:19 | ASMTCMCOM ---
CM Note CM Note Notes: [facility]. Pt accepted at [facility], [facility] and [facility]. Pt and dghtr Laine updated, will let CM know choice. Date Signed: 09/24/2017 02:18 PM Electronically Signed By:NAVEED Lindsay
--- NOTE | 2017-09-24 16:49 | HOSPPROG ---
Hospitalist Progress Note Assessment/Plan: * Patella fracture -straight leg knee immobilizer -WBAT -poor mobility - will need SNF * Afib/PCM -continue Eliquis * Chronic CHF due to DD Subjective: No new complaints. Objective: Vital Signs Temp Pulse Resp BP Pulse Ox 36.6 C 80 16 113/66 95 09/24/17 15:29 09/24/17 15:29 09/24/17 15:29 09/24/17 15:29 09/24/17 15:29 09/23/17 09/24/17 09/25/17 05:59 05:59 05:59 Intake Total 450 675 Output Total 1100 1050 Balance -650 -375 PT 14.5 SEC (12.0-15.0) 09/22/17 09:15 INR 1.11 (0.83-1.16) 09/22/17 09:15 - Physical Exam Constitutional: no apparent distress, appears nourished, not in pain Cardiovascular: regular rate and rhythym, no murmur, rub, or gallop Respiratory: no respiratory distress, no rales or rhonchi, clear to auscultation Gastrointestinal: normoactive bowel sounds, soft, non-tender abdomen, no palpable masses Skin: no rashes or abrasions, no fluctuance, no induration Neurologic: AAOx3, sensation intact bilaterally Psychiatric: interacting appropriately, not anxious, not encephalopathic, thought process linear ICD10 Worksheet Patient Problems: Problems Problem Status Onset Chronic anticoagulation Acute Effusion of left knee Acute Fall Acute Inability to ambulate due to knee Acute Left patella fracture Acute Atrial fibrillation with rapid ventricular response Acute Bradycardia Acute Chest pain Acute Pericardial effusion Acute Pleural effusion, left Acute Sinus arrest Acute
[2017-09-25] MEDS: LEVOTHYROXINE 25 MCG TAB PO SCH (05:23)
[2017-09-25 08:08] VITALS: BP 108/66
--- NOTE | 2017-09-25 10:03 | PDIAF ---
- Diagnosis Diagnosis: patella fracture Code Status: Do Not Resuscitate - Medication Management Discharge Medications: Medications to Continue on Transfer Herbals/Supplements -Info Only 1 ea PO DAILY 01/07/15 [Last Taken Unknown] Levothyroxine [Synthroid 25 mcg (*)] 25 mcg PO DAILY06 01/07/15 [Last Taken ] Apixaban [Eliquis] 2.5 mg PO BID #60 tab 01/11/15 [Last Taken 09/21/17] Cholecalciferol Vit D3 [Vitamin D3 (*)] 1,000 units PO DAILY 07/09/16 [Last Taken 07/06/16] Ascorbic Acid [Vitamin C 500 mg (*)] 500 mg PO DAILY 09/22/17 [Last Taken Unknown] Multivitamins [Multivitamin (*)] 1 each PO DAILY 09/22/17 [Last Taken Unknown] Propylene Glycol/Peg 400 [SYSTANE 0.3-0.4% EYE DROPS] 1 - 2 drops OP DAILY PRN 09/22/17 [Last Taken Unknown] Discharge Medications: Refer to the Discharge Home Medication list for PRN reason. - Orders Services needed: Physical Therapy, Occupational Therapy Isolation Type: None Diet Recommendation: no restrictions on diet Activity/Weight Bearing Restrictions: WBAT with straight leg knee immobilizer Additional Instructions: - Weight-bearing as tolerated - Knee immobilizer is to be worn at all times, with exception of shower - keep leg straight w/help showering - No knee range of motion movements - Follow-up with Dr. Price in one week at clinic: [facility] at [address] [place] [address] [id number], [place] [address]; - Follow Up Care Current Providers and Referrals: Anna Andino MD [Primary Care Provider] - As per Instructions Jo Price MD [Medical Doctor] - follow up in 1 week
[2017-09-25] MEDS: CHOLECALCIFEROL VIT D3 1,000 UNITS TAB PO SCH (10:31)
[2017-09-25] MEDS: ASCORBIC ACID 500 MG TAB PO SCH (10:31)
[2017-09-25] MEDS: APIXABAN 2.5 MG TAB PO SCH (10:31)
--- NOTE | 2017-09-25 15:23 | ASMTCMCOM ---
CM Note CM Note Notes: Pt medically stable for d/c to [facility], orders sent in Allscripts. RADHA Contreras to call report. Laney with [facility] scheduled wc transport. Date Signed: 09/25/2017 03:22 PM Electronically Signed By:NAVEED Lindsay
--- NOTE | 2017-09-25 15:23 | ASDISCHSUM ---
Discharge Information Plan Status:SNF Medically Cleared to Leave: Discharge Date:09/25/2017 03:16 PM CM D/C Disposition:[facility] ADT D/C Disposition:[facility] Facility Projected Discharge Date:09/25/2017 11:00 AM Transportation at D/C:Wheelchair Van Discharge Delay Reason: Follow-Up Date:09/25/2017 11:00 AM Discharge Slot: Final Diagnosis: Placement Information Referral Type:*Jail/SNF Referral ID:[id number] Provider Name:[facility] Address 1:[address] Address 2: City:[place] Selection Factors: State:[place] Patient Contact Information Contact Name:AMIE Relationship:Son Address: City: [facility] [place] Phone: State/Zip Code: Email: Financial Information Financial Class:Medicare Primary Plan Desc:MEDICARE INPATIENT Primary Plan Number:[id number] Secondary Plan Desc:[facility] Secondary Plan Number:[id number] Assessment Information [facility] CM Progress Note CM Note CM Note Notes: Pt presented to the ED via EMS from home for left knee swelling and pain after she had a mechanical fall last night. Pt was able to get back up into her bed but then when she went to the bathroom later in the night she became weak and lowered herself to the floor and then was unable to stand again. Pt had tried to contact her daughter who lives in [place], but pt was unable to reach her so she remained on the floor until 7am today. Pt had also hit her head at the time. Pt has a left patellar fracture and knee effustion; knee immobilizer placed and ortho consulted. Pt accompanied to the ED by her son, Gutierrez ([phone]) who lives in [place]. Pt lives alone in an apartment and is normally independent w/her ADLs. Pt does not receive any home care services. Pt's other son, Jassi, lives close to her but he is out of the country at this time. PT/OT to eval. Pt may need short term rehab stay at SNF vs. home w/skilled and non-skilled HC. CM discussed this briefly w/pt and Gutierrez while in the ED. CM to follow. Date Signed: 09/22/2017 02:24 PM Electronically Signed By:Darling Otero RN LACE KELSEA Acuity / Level of Answers: Yes Care: Did the patient have an inpatient admission? Comorbidities - select Answers: Congestive heart failure all that apply History of falls Other Notes: A- fib, pacemaker, anemia, HT N, hyperlipidemia, mode rat e pulmonary hypertension, hypothyro idi sm, migraines, anxiety # of Emergency department Answers: 1-2 visits in the last 6 months Social determinants Answers: Mental health diagnosis (anxiety, depression, pers onality disorders, etc.) Score: 13 Date Signed: 09/22/2017 02:28 PM Electronically Signed By:Darling Otero RN [facility] Progress Note CM Note CM Note Notes: CM met w/ pt and Laine (daughter) for dispo planning. SNF is recommended. CM provided pt and Laine w/ senior blue book. Pt and Laine would like referrals made to [facility], [facility], [facility] and [facility]. Referral sent. CM completed non triggering PASRR. CM to follow. Plan: SNF Date Signed: 09/23/2017 03:46 PM Electronically Signed By:LUCIANA Fabian [facility] CM Progress Note CM Note CM Note Notes: [facility] bed available. Pt accepted at [facility], [facility] and [facility]. Pt and dghtr Laine cabrera, will let CM know choice. Date Signed: 09/24/2017 02:18 PM Electronically Signed By:NAVEED Lindsay [facility] CM Progress Note CM Note CM Note Notes: Pt medically stable for d/c to [facility] orders sent in [employer]. RADHA Contreras to call report. Laney with [facility] scheduled wc transport. Date Signed: 09/25/2017 03:22 PM Electronically Signed By:NAVEED Lindsay Intervention Information Intervention Type:*IM-Signed Date of Service:09/25/2017 10:33 AM Patient Type:Inpatient Staff Member:Tara Burrows Hours: Discipline: Severity: Comment:
--- NOTE | 2017-09-25 17:49 | GDS ---
[f rep st] DISCHARGE SUMMARY DISCHARGE DIAGNOSES: 1. Patella fracture. 2. Atrial fibrillation with pacemaker. 3. Chronic congestive heart failure due to diastolic dysfunction. HISTORY: The patient is an 82-year-old female who presented with a mechanical fall. She sustained a patella fracture. She was seen by Orthopedic Surgery. She can be weightbearing as tolerated in a s traight leg knee immobilizer. She is requiring jail facility due to her poor mobility wit h this. She is transferring to [facility]. DISCHARGE MEDICATIONS: Please see computer record for full detailed list. There were no new medicat ions given at time of hospital discharge. ADDITIONAL DISCHARGE INSTRUCTIONS: 1. Weightbearing as tolerated. 2. Knee immobilizer to be worn at all times with the exception of showering. Keep leg straight with help during showering. 3. No range of motion movements. 4. Follow up with Dr. Price in 1 week. Greater than 30 minutes' time was spent arranging this discharge. Patient seen examined by me on the date of discharge. /[id number]/MODL
== END 2017-09-25 15:16 | DRG 563 ==
LOC: EDUNIT# → F3N 11:50
PROVIDERS: ADMIT Internal Medicine; ATTEND Internal Medicine
PROC: 2W3LX1Z Immobilization of Right Lower Extremity using Splint (ICD-10-PCS; principal; 2017-09-22)
DX: S82.031A Displaced transverse fracture of right patella, initial encounter for closed fracture (principal); W01.198A Fall on same level from slipping, tripping and stumbling with subsequent striking against other object, initial encounter; Y93.89 Activity, other specified; Y92.032 Bedroom in apartment as the place of occurrence of the external cause; Y99.8 Other external cause status; I48.91 Unspecified atrial fibrillation; Z79.01 Long term (current) use of anticoagulants; Z95.1 Presence of aortocoronary bypass graft; I50.32 Chronic diastolic (congestive) heart failure; E03.9 Hypothyroidism, unspecified; E78.5 Hyperlipidemia, unspecified; I11.0 Hypertensive heart disease with heart failure; I27.89 Other specified pulmonary heart diseases; F41.9 Anxiety disorder, unspecified
CPT/HCPCS: 92523-GN; 97116-GP; 97161-GP; 97166-GO; 97535-GO; G8978-GP-CK; G8979-GP-CI; G8987-GO-CK; G8988-GO-CI; G8989-GO-CJ; G9168-GO-CI; G9169-GN-CI; G9170-GN-CJ; L1830

== ENCOUNTER → 2018-08-28 | Outpatient (CLI) | payer OTHER | LOC: FIMAGING 08:26 ==